=== PATIENT | female | born 1955 | race Caucasian/White ===

== ENCOUNTER 2020-05-03 12:07 | Emergency (ER) | payer MEDICARE, SELFPAY ==
[2020-05-03 12:35] VITALS: BP 90/53; BP 95/50; PULSE 84; RESP 14; TEMP 36.2; O2SAT 96; BMI 34.2
--- NOTE | 2020-05-03 12:58 | HMH.EDUTC ---
[facility] [place] Disposition Clinical Impression: Exposure to COVID-19 virus Sinusitis Qualifiers: Sinusitis location: unspecified location Chronicity: acute Recurrence: non-recurrent Qualified Code(s): J01.90 - Acute sinusitis, unspecified Disposition: Home, Self-Care Condition on Discharge: Good Instructions: Sinusitis, DI for Sinusitis, Preventing the Spread of Coronavirus Discharge Instructions Additional Instructions: Drink plenty of fluids. Take tylenol or ibuprofen for pain or fever. Take the medications as directed. Follow up with your regular doctor. GO TO THE ER FOR ANY WORSENING SYMPTOMS Prescriptions: predniSONE [Prednisone 20mg Tab] 20 mg PO BID 4 Days #8 tab Transmission Status: Received by [facility] Benzonatate [Tessalon Perle 100mg Cap] 100 mg PO TIDP PRN #30 cap PRN Reason: Cough Transmission Status: Received by [facility] Azithromycin [Z-Bart 250mg Tab*] 250 mg PO UD DOSE PK #6 tab Transmission Status: Received by [facility] Referrals: Balbina Leon APRN [Primary Care Provider] - Time of Disposition: 13:00 Medical Decision Making - Medical Records Medical records reviewed: No: I reviewed the patient's medical records. - Ron Inquiry Pt receiving controlled substance: No Vital Signs: 05/03/20 12:35 05/03/20 13:19 Temperature 97.1 F L 97.6 F Temperature Source Tympanic Tympanic Pulse Rate 82 Pulse Rate [Right] 84 Respiratory Rate 14 16 Blood Pressure 105/61 L Blood Pressure [Left Arm] 90/53 L Blood Pressure [Right Arm] 95/50 L Blood Pressure Mean [Left Arm] 65 Blood Pressure Mean [Right Arm] 65 Blood Pressure Source [Left Arm] Automatic Cuff Blood Pressure Source [Right Arm] Automatic Cuff Blood Pressure Position Sitting Blood Pressure Position [Left Arm] Sitting Blood Pressure Position [Right Arm] Sitting 02 Sat by Pulse Oximetry 96 Oxygen Delivery Method Room Air Room Air [facility] [place] HPI - General Stated complaint: sore throat, bilateral earache,sinus Time Seen by Provider: 05/03/20 12:58 Mode of Arrival: Ambulatory Source of Information: Patient Limitations: No Limitations Description of Symptoms (Recalled from Triage Doc. by RN): sore throat, ear ache, nausea since sunday. HEENT Symptoms (Recalled from RN notes): Yes (sore throat and ear ache) Resp Symptoms (Recalled from RN notes): No Skin Symptoms (Recalled from RN notes): No MS Symptoms (Recalled from RN notes): No Functional Status (Recalled from RN notes): na - History of Present Illness Provider Complaint: She states that for the past 3 days she has been having sinus congestion, sore throat and a cough. She denies any fever or chills. She was exposed to covid last week, but she doesn't believe she has covid. - Related Data Previous Rx's Medication Instructions Recorded Azithromycin [Z-Bart 250mg Tab*] 250 mg PO UD DOSE PK #6 tab 05/03/20 Benzonatate [Tessalon Perle 100mg 100 mg PO TIDP PRN #30 cap 05/03/20 Cap] predniSONE [Prednisone 20mg 20 mg PO BID 4 Days #8 tab 05/03/20 Tab] Allergies Allergy/AdvReac Type Severity Reaction Status Date / Time No Known Allergies Allergy Verified 05/03/20 12:40 - Worker's Comp Is this a Worker's Comp case?: No [facility] History - Hepatitis A Screen Drug use history?: No High risk sexual behaviors?: No History of sexually transmitted infection?: No Currently employed?: No Childcare worker?: No Do you have indoor plumbing?: Yes Do you have electricity?: Yes Attestation statement:: This patient has been screened for Hepatitis A risk factors. I have reviewed the patient's past medical history: Yes - Social History Smoking Status: Never smoker Alcohol Intake: never Occupational Status: other Household Members: spouse ROS Obtained: Yes All systems reviewed & no additional complaints - Constitutional Constitutional: Reports system reviewed and no additional complaints, except as docu - Eyes
[2020-05-03 13:19] VITALS: BP 105/61; PULSE 82; RESP 16; TEMP 36.4
--- NOTE | 2020-05-03 16:41 | PC.NURSE ---
spoke with pt relaying positive covid results.
== END 2020-05-03 13:20 | disposition home or self-care (01) ==
PROVIDERS: Emergency Provider Nurse Practitioner Family; PCP Nurse Practitioner Family
DX: U07.1 COVID-19 (principal); J01.90 Acute sinusitis, unspecified
CPT/HCPCS: G0463; 99202; U0003

== ENCOUNTER 2021-08-23 09:33 | Emergency (ER) | payer MEDICARE, SELFPAY ==
--- NOTE | 2021-08-23 09:39 | XR_ITS ---
FINAL REPORT CLINICAL HISTORY: medial knee pain since sunday, no prior sx FINDINGS: LEFT KNEE: Three views of the left knee were obtained. There is no acute fracture or dislocation. There are agdx-ct-wlzrrkru degenerative changes. There is a small joint effusion. IMPRESSION: No acute bony abnormality. Small joint effusion. Reviewed, Interpreted and Dictated by Jose Rafael Nelson III, MD Transcribed by Tomasz Lopes Authenticated by Jose Rafael Nelson III, MD on 08/23/2021 10:37:48 AM [facility]
[2021-08-23 09:53] VITALS: BP 141/63; PULSE 61; RESP 17; TEMP 36.7; O2SAT 98; BMI 34.9
--- NOTE | 2021-08-23 10:02 | HMH.EDUTC ---
[facility] [place] Clinical Impression: Left knee pain Qualifiers: Chronicity: acute Qualified Code(s): M25.562 - Pain in left knee Left knee sprain Qualifiers: Encounter type: initial encounter Involved ligament of knee: unspecified ligament Qualified Code(s): S83.92XA - Sprain of unspecified site of left knee, initial encounter Disposition: Home, Self-Care Condition on Discharge: Good Instructions: DI for Knee Sprain, DI for Knee Pain, How to Use a Knee Immobilizer Additional Instructions: Rest the extremity, Elevate the extremity as tolerated while you are resting. Follow up with Dr. Garcia (orthopedics). Sometimes there can be fractures that don't show up well on the first set of x-rays. So, you should follow up if you continue to have symptoms. I put in a referral but you need to call his office and schedule an appointment. Follow up with your regular doctor. GO TO THE ER FOR ANY WORSENING SYMPTOMS Referrals: Balbina Leon APRN [Primary Care Provider] - Manuel Garcia MD [Staff Physician] - Time of Disposition: 10:21 Medical Decision Making - Medical Records Medical records reviewed: No: I reviewed the patient's medical records. - Orn Inquiry Pt receiving controlled substance: No Vital Signs: 08/23/21 09:53 08/23/21 10:22 Temperature 98.0 F 98.0 F Temperature Source Oral Pulse Rate 61 Pulse Rate [Left Radial] 61 Respiratory Rate 17 17 Blood Pressure 141/63 H Blood Pressure [Right Arm] 141/63 H Blood Pressure Mean [Right Arm] 89 02 Sat by Pulse Oximetry 98 Orders (Tests/Meds): ED MEDICATIONS Discontinued Medications Generic Name Dose Route Start Last Admin Trade Name Freq PRN Reason Stop Dose Admin Methylprednisolone Sodium Succinate 125 mg 08/23/21 10:08 08/23/21 10:20 Methylprednisolone Sod Succ 125mg Vial IM 08/23/21 10:09 125 mg ONCE ONE Administration ORDERS Category Date Time Status Knee XR left 3 views [XR knee LT 3V] Stat Exams 08/23/21 09:39 Taken - Radiology Data #1 Image(s): Knee Image Reviewed: Yes I reviewed the patient's radiology image, Yes I have reviewed radiologist's interpretation Preliminary Findings: No Fracture Seen [facility] [place] HPI - General Stated complaint: lt knee pain Time Seen by Provider: 08/23/21 10:02 Source of Information: Patient Description of Symptoms (Recalled from Triage Doc. by RN): patient here with complaints of left knee pain. patient states that she has been spring cleaning around her house, and her knee began hurting. this happened on sunday. HEENT Symptoms (Recalled from RN notes): No Resp Symptoms (Recalled from RN notes): No Skin Symptoms (Recalled from RN notes): No MS Symptoms (Recalled from RN notes): Yes Functional Status (Recalled from RN notes): wnl - History of Present Illness Provider Complaint: She c/o left knee pain and stiffness for the past 2 days. - Related Data Previous Rx's Medication Instructions Recorded Azithromycin [Z-Bart 250mg Tab*] 250 mg PO UD DOSE PK #6 tab 05/03/20 Benzonatate [Tessalon Perle 100mg 100 mg PO TIDP PRN #30 cap 05/03/20 Cap] predniSONE [Prednisone 20mg 20 mg PO BID 4 Days #8 tab 05/03/20 Tab] Allergies Allergy/AdvReac Type Severity Reaction Status Date / Time No Known Allergies Allergy Verified 05/03/20 12:40 - Worker's Comp Is this a Worker's Comp case?: No [facility] History - Hepatitis A Screen Attestation statement:: This patient has been screened for Hepatitis A risk factors. I have reviewed the patient's past medical history: Yes - Social History Smoking Status: Never smoker Alcohol Intake: never Occupational Status: other Household Members: spouse ROS Obtained: Yes All systems reviewed & no additional complaints - Constitutional Constitutional: Denies chills, Denies fever(s) - Eyes Eyes: Denies eye discharge - Musculoskeletal Musculoskeletal: Reports as per HPI - Integumentary/Breasts Skin/B
[2021-08-23 10:22] VITALS: BP 141/63; PULSE 61; RESP 17; TEMP 36.7
== END 2021-08-23 10:27 | disposition home or self-care (01) ==
PROVIDERS: Emergency Provider Nurse Practitioner Family; PCP Nurse Practitioner Family
DX: S83.92XA Sprain of unspecified site of left knee, initial encounter
CPT/HCPCS: 73562; 99212; G0463

== ENCOUNTER 2021-09-02 13:46 | Outpatient (RCR) | payer MEDICARE, SELFPAY | END 2021-09-02 14:30 | disposition home or self-care (01) | LOC: PT 13:46 | PROVIDERS: Visit Provider Orthopaedic Surgery | DX: M25.562 Pain in left knee (principal) | CPT/HCPCS: 97760 ==

== ENCOUNTER 2021-11-15 11:00 | Outpatient (RCR) | payer MEDICARE, SELFPAY ==
--- NOTE | 2021-09-08 11:22 | HMH.PTOPEV ---
PT Outpatient Evaluation Rehab PT Outpatient Evaluation Start: 09/08/21 11:15 Freq: Status: Active Protocol: Document 09/08/21 11:15 CHAGO (Rec: 09/08/21 11:22 CHAGO [id number]) Electronically Signed By Álvaro Reis, PT 09/08/21 11:15 Outpatient Therapy Subjective History Subjective History Pt reports left knee pain since 'stepping off ladder and missing a rung'~1 month ago. Pt reports medial aspect left knee pain since incident, however, reports improvement of s/s over the last ~3-4 days . Pt reports h/o left knee OA. Chief Complaint Pain,Stiff,Swelling,Weakness Symptom Type Ache,Sharp,Dull Symptoms Relieved By Rest/Positioning,Brace/Support Symptoms Aggravated By Physical Activity,Walking Prior Functional Limitations None Current Functional Limitations Walking,Stairs Symptom Description Intermittent Level of pain today (0-10) 0 Pain scale - at its best (0-10) 0 Pain scale - at its worst (0-10) 3 Hip/Knee Eval Gait Observation General Gait Pattern Observation Antalgic Gait Palpation Tenderness left Knee Palpation Finding Tenderness Knee Palpation Overall Comment 2-3/4 medial jt line/MCL MMT Hip Flexion Strength Grade 4 Good Hip Abduction Strength Grade 4- Good- Hip Adduction Strength Grade 4- Good- Hip Extension Strength Grade 4 Good Hip External Rotation Strength Grade 4 Good Hip Internal Rotation Strength Grade 4 Good Knee Extension Strength Grade 5 Normal Knee Flexion Strength Grade 5 Normal ROM Knee Flexion Active Range of Motion ( 0-135 degrees) Effusion joint effusion knee exam standard left Mid - Patellar Circumerential Measure ( 37 cm) Special Tests Knee Valgus Stress Test Negative Left Knee Varus Stress Test Negative Left Knee Peace Test Negative Left Outpatient Therapy Assessment Impairments Problems/Impairmments Palpation Tenderness,Impaired Strength,Impaired Gait Pattern ,Impaired Walking,Impaired Stair Climbing,Subjective C/O Pain,Impaired Self Care/Self Management Prognosis Rehab Potential Good Clinical Impression Consistent with Diagnosis Yes Short Term Goals Number of Weeks 4 Decreased Palpation Tenderness Yes: 0-1/4 left knee medial aspect Increase Strength Yes: 4-4+/5 LEFT HIP/KNEE MM Imp
--- NOTE | 2021-10-06 11:40 | HMH.RHREAS ---
Rehab Reassessment Rehab OP Re-assessment Start: 10/06/21 11:05 Freq: Status: Active Protocol: Document 10/06/21 11:06 CHAGO (Rec: 10/06/21 11:39 CHAGO [id number]) Electronically Signed By Álvaro Reis, PT 10/06/21 11:06 Rehab Re-assessment Subjective Subjective Pt reports improved strength and pain in left knee since I eval, reports 1/10 left knee pain on VAS this am, feels 35- 40% better overall Objective Objective Notes AROM: LEFT KNEE FLX 0-139 MMT: L KNEE EXT 5/5, L KNEE FLX 4+/5 L HIP FLX 4-4+/5, L HIP ABD 4/5, L HIP ADD 4/5, L HIP EXT 4-4+/5 TTP: LEFT KNEE MEDIAL JT LINE 1-2/4 GAIT: WFL ON LEVEL TERRAIN, NO A.D. Assessment Progress Assessment Progressing as Expected Assessment Notes IMPROVED STRENGTH, ROM, TTP, AND GAIT Patient goals met STG'S/LTG'S 08/31 Goals Not Met STG/LTG'S 05/03 (ADVANCED HEP, TTP) Plan Plan Pt to continue w/skilled P.T. to make further improvements in left knee AROM, strength, TTP, and gait to allow for optimal function Frequency of Therapy 1-2x/wk Duration of therapy 3-4wks Time and Billing Re-Eval Time 12 Re-Eval Billing Units 1 PHYSICIAN CERTIFICATION: I certify the specified therapy services for Rita Ogden are required, authorized, and reviewed every 30 days.
--- NOTE | 2021-11-08 11:42 | HMH.RHREAS ---
Rehab Reassessment Rehab OP Re-assessment Start: 10/06/21 11:05 Freq: Status: Active Protocol: Document 11/08/21 11:06 CHAGO (Rec: 11/08/21 11:42 CHAGO [id number]) Electronically Signed By Álvaro Reis, PT 11/08/21 11:06 Rehab Re-assessment Subjective Subjective Pt reports improved strength in left LE since last reassessment, however 'it's still hurting in the front.' Objective Objective Notes AROM: LEFT KNEE FLX 0-140 MMT: L KNEE EXT 5/5, L KNEE FLX 4+/5 L HIP FLX 4-4+/5, L HIP ABD 4+/5, L HIP ADD 4+/5, L HIP EXT 4+/5 TTP: LEFT KNEE MEDIAL JT LINE 1-24 GAIT: WFL ON LEVEL TERRAIN, NO A.D. Assessment Progress Assessment Progressing as Expected Assessment Notes improved left hip strength Patient goals met STG'S/LTG'S 09/30 Goals Not Met STG'S/LTG'S 04/02 (TTP) Plan Plan Pt to continue w/skilled P.T. to make further improvements in left knee AROM, strength, TTP, and gait to allow for optimal function Frequency of Therapy 1-2X/WK Duration of therapy 1-2WKS Time and Billing Re-Eval Time 12 Re-Eval Billing Units 1 PHYSICIAN CERTIFICATION: I certify the specified therapy services for Rita Ogden are required, authorized, and reviewed every 30 days.
== END 2021-11-15 11:05 | disposition home or self-care (01) ==
LOC: PT 11:00
PROVIDERS: PCP Orthopaedic Surgery; Visit Provider Orthopaedic Surgery
DX: M25.562 Pain in left knee (principal)
CPT/HCPCS: 97010; 97014; 97033; 97035; 97110; 97163; 97164; G0283

== ENCOUNTER → 2022-05-15 23:24 | Outpatient (CLI) | payer MEDICARE, SELFPAY ==
[2022-05-15 17:22] LABS: Barbiturates Screen,Urine Negative ng/ml (<200); Benzodiazepines Screen,Urine Negative ng/ml (<200)
[2022-05-15 17:23] LABS: Amphetamine/Metha Screen,Urine Negative ng/ml (<1000)
[2022-05-15 17:24] LABS: Cannabinoid Screen,Urine Negative ng/ml (<50); Cocaine Screen,Urine Negative ng/ml (<300)
[2022-05-15 17:25] LABS: Methadone Screen,Urine Negative ng/ml (<300); Opiate Screen,Urine Negative ng/ml (<300)
[2022-05-15 17:26] LABS: Phencyclidine Screen,Urine Negative ng/ml (<25)
== END ==
PROVIDERS: PCP Family Medicine; Visit Provider Family Medicine
DX: Z79.899 Other long term (current) drug therapy (principal)
CPT/HCPCS: 80305

== ENCOUNTER 2024-03-12 10:40 | Outpatient (CLI) | payer MEDICARE, SELFPAY ==
[2024-03-12 17:09] LABS: Hematocrit 40.9 % (37.0-47.0); Red Blood Count 4.28 M/mm3 (4.20-5.40); White Blood Count 7.4 K/mm3 (4.8-10.8)
[2024-03-12 17:10] LABS: Basophils # 0.1 K/mm3 (0-0.2); Basophils % 0.8 % (0.1-2.0); Eosinophils # 0.2 K/mm3 (0.0-0.4); Eosinophils % 2.2 % (0.1-12.0); Lymphocytes # 1.4 K/mm3 (0.7-4.5); Lymphocytes % 18.4 % (10-50); Mean Corpuscular HGB Conc 31.8 g/dL (31.8-35.4); Mean Corpuscular Hemoglobin 30.4 pg (27.0-31.2); Mean Corpuscular Volume 95.6 fl (81-99); Mean Platelet Volume 11.9 fl (7.4-10.4); Monocytes # 0.8 K/mm3 (0.1-1.0); Monocytes % 10.9 % (1.7-9.3); Neutrophils % 67.4 % (37.0-80.0); Platelet Count 335 K/mm3 (142-424); Red Cell Distribution Width 13.2 % (11.5-17.5)
[2024-03-12 17:36] LABS: Alanine Aminotransferase 23 U/L (12-78); Albumin Level 4.1 g/dl (3.5-5.0); Albumin/Globulin Ratio 2.1 (1.1-1.8); Alkaline Phosphatase 90 U/L (38-126); Anion Gap 14.5 mEq/L (5-15); Aspartate Amino Transferase 29 U/L (14-36); Bilirubin,Total 0.7 mg/dl (0.2-1.3); Blood Urea Nitrogen 19 mg/dl (7-17); Calcium 9.1 mg/dl (8.4-10.2); Carbon Dioxide 28 mmol/L (22.0-30.0); Chloride 103 mmol/L (98-107); Chol/HDL Ratio 2.3 (1-3.5); Cholesterol 122 mg/dl (140-200); Estimated Glomerular Filt Rate 49 ml/min (>60); GFR (African American) 59 ML/MIN (>60); Glucose 109 mg/dl (74-100); HDL Cholesterol 53 mg/dl (40-60); Potassium 4.5 mmoL/L (3.5-5.1); Sodium 141 mmol/L (136-145); Total Protein,Serum 6.1 g/dl (6.3-8.2); Triglycerides 107 mg/dl (30-150); VLDL Cholesterol 21 mg/dL (0-40)
[2024-03-12 17:47] LABS: Direct LDL Cholesterol 55.62 mg/dL (100-129)
[2024-03-12 18:06] LABS: Thyroid Stimulating Hormone 2.29 uIU/mL (0.465-4.68)
[2024-03-12 19:30] LABS: Microalbumin/Creatinine Ratio 35.8
[2024-03-12 20:10] LABS: Creatinine,Urine Random 231 mg/dL (Not Estab.)
[2024-03-12 22:12] LABS: HIV Combo NEGATIVE (Negative)
[2024-03-15 05:26] LABS: HCV Ab Non Reactive (Non Reactive)
== END 2024-03-12 23:59 | disposition home or self-care (01) ==
LOC: LAB.DROPOF 03-13 12:12
PROVIDERS: PCP Family Medicine; Visit Provider Family Medicine
DX: I10 Essential (primary) hypertension (principal); E11.9 Type 2 diabetes mellitus without complications; Z11.59 Encounter for screening for other viral diseases
CPT/HCPCS: 80053; 80061; 82043; 82570; 83036; 84443; 85025; 86803; 87389

== ENCOUNTER 2024-05-06 07:38 | Day surgery (SDC) | payer MEDICARE, SELFPAY ==
[2024-05-05 12:07] VITALS: BMI 33.8
[2024-05-06] VITALS (7 sets, daily range): BP systolic 115–126; BP diastolic 47–83; PULSE 58–71; RESP 16–18; TEMP 36.4; O2SAT 95–99
[2024-05-06] MEDS: TETRACAINE 0.5% OPTH SOL 15ML OP ×3 (08:00→08:10)
[2024-05-06] MEDS: CYCLOPENTOLATE 2% OPHTH SOLN 2ML BOTTLE OP ×3 (08:00→08:10)
[2024-05-06] MEDS: PHENYLEPHRINE 2.5% OPHTH SOLN 2ML OP ×3 (08:00→08:10)
[2024-05-06] MEDS: MIDAZOLAM 2MG/2ML VIAL 1 MG IV (09:10)
[2024-05-06] MEDS: SODIUM CHLORIDE 0.9% 10ML FLUSH SYRINGE 10 ML IV (09:10)
[2024-05-06] MEDS: TOBRAMYCIN/DEX OPTH SUSP 2.5ML OP (09:18)
[2024-05-06] MEDS: TIMOLOL 0.5% OPTH SOLN 5ML OP (09:18)
[2024-05-06] MEDS: LIDOCAINE 1% PF 2ML AMPULE 2 ML IJ (09:19)
--- NOTE | 2024-05-06 10:41 | HMH.PROCNOTE ---
[facility] Procedure Note Date: 05/06/24 Time: 10:41 Procedure Note:: Preoperative Diagnosis: Cataract combined NS Cortical Complex [Right] Eye Postop diagnosis: same Operation: Microscopic phacoemulsification with intraocular lens implant [Right] Eye Specimen: None Blood Loss: None The patient was examined in the office with a complaint of poor vision in the [right] eye. The patient reports that this interferes with ADLs such as reading, watching TV and/or driving or the vision is like looking through a foggy haze and is very troubling. The patient was examined and found to have a visually significant cataract with best corrected vision of [20/400] by refraction and/or glare testing. Treatment options, risks and benefits were explained and the patient elected to have cataract surgery in an attempt to improve their vision. The patient had the eye anesthetized with topical tetracaine, the eye ways prepped and draped in the usual fashion for cataract surgery. A paracentesis and a temporal keratotomy were made. 0.2cc of 1% lidocaine PF was placed into the anterior chamber. And aqueous/viscoelastic exchange was done and a 360 degree capsulorexis was performed. Through hydrodissection and delineation with BSS on a cannula was done. The lens nucleus was phecoemulsified with CDE of [9.13]. Residual cortical material was removed using automated I&A The capsular bag was deepened with viscoelastica and a PCIOL was placed in the capsular bag with good centration and stability. Residual viscoelastic was removed using automated I&A. The keratotomy incision was hydrated with BSS on a cannula. The wound were checked and found to be water tight. IOP was checked digitally and adjusted as needed so as not to be too high. 1 drop of timolol 0.5%, ofloxacin, prednisolone acetate and ketorolac was instilled and eye shield taped over the eye. The patient was taken to recovery in good condition and will be seen postoperatively.
== END 2024-05-06 09:43 | disposition home or self-care (01) ==
PROVIDERS: PCP Family Medicine; Visit Provider Ophthalmology
PROC: (CPT 66984; principal; 2024-05-06 09:00)
DX: H25.011 Cortical age-related cataract, right eye (principal)
CPT/HCPCS: 66984; J2250; V2632

== ENCOUNTER 2024-06-03 07:27 | Day surgery (SDC) | payer MEDICARE, SELFPAY ==
[2024-05-30 13:44] VITALS: BMI 34.7
[2024-06-03] MEDS: CYCLOPENTOLATE 2% OPHTH SOLN 2ML BOTTLE OP ×3 (08:22→08:23)
[2024-06-03] MEDS: TETRACAINE 0.5% OPTH SOL 15ML OP ×3 (08:22→08:23)
[2024-06-03] MEDS: PHENYLEPHRINE 2.5% OPHTH SOLN 2ML OP ×3 (08:22→08:23)
[2024-06-03 08:27] VITALS: BP 132/53; PULSE 62; RESP 18; TEMP 36.4; O2SAT 93
[2024-06-03 08:53] LABS: POC Glucose,Bedside 107 (70-110)
[2024-06-03 09:03] VITALS: BP 133/67; PULSE 56; RESP 16; TEMP 36.6; O2SAT 94
[2024-06-03] MEDS: MIDAZOLAM 2MG/2ML VIAL 1 MG IV (09:03)
[2024-06-03] MEDS: SODIUM CHLORIDE 0.9% 10ML FLUSH SYRINGE 10 ML IV (09:03)
[2024-06-03 09:08] VITALS: BP 121/63; PULSE 56; RESP 16; TEMP 36.6; O2SAT 92
[2024-06-03] MEDS: LIDOCAINE 1% PF 2ML AMPULE 2 ML IJ (09:10)
[2024-06-03] MEDS: TIMOLOL 0.5% OPTH SOLN 5ML OP (09:10)
[2024-06-03] MEDS: TOBRAMYCIN/DEX OPTH SUSP 2.5ML OP (09:10)
[2024-06-03 09:13] VITALS: BP 128/71; PULSE 55; RESP 16; TEMP 36.6; O2SAT 93
[2024-06-03 09:18] VITALS: BP 125/67; PULSE 54; RESP 16; TEMP 36.6; O2SAT 93
[2024-06-03 09:24] VITALS: BP 120/75; PULSE 61; RESP 18; TEMP 36.3; O2SAT 94
--- NOTE | 2024-06-03 11:43 | HMH.PROCNOTE ---
[facility] Procedure Note Date: 06/03/24 Time: 11:43 Procedure Note:: Preoperative Diagnosis: Cataract combined NS Cortical Complex [Left] Eye Postop diagnosis: same Operation: Microscopic phacoemulsification with intraocular lens implant [Left] Eye Specimen: None Blood Loss: None The patient was examined in the office with a complaint of poor vision in the [left] eye. The patient reports that this interferes with ADLs such as reading, watching TV and/or driving or the vision is like looking through a foggy haze and is very troubling. The patient was examined and found to have a visually significant cataract with best corrected vision of [20/400] by refraction and/or glare testing. Treatment options, risks and benefits were explained and the patient elected to have cataract surgery in an attempt to improve their vision. The patient had the eye anesthetized with topical tetracaine, the eye ways prepped and draped in the usual fashion for cataract surgery. A paracentesis and a temporal keratotomy were made. 0.2cc of 1% lidocaine PF was placed into the anterior chamber. And aqueous/viscoelastic exchange was done and a 360 degree capsulorexis was performed. Through hydrodissection and delineation with BSS on a cannula was done. The lens nucleus was phecoemulsified with CDE of [9.43]. Residual cortical material was removed using automated I&A The capsular bag was deepened with viscoelastica and a PCIOL was placed in the capsular bag with good centration and stability. Residual viscoelastic was removed using automated I&A. The keratotomy incision was hydrated with BSS on a cannula. The wound were checked and found to be water tight. IOP was checked digitally and adjusted as needed so as not to be too high. 1 drop of timolol 0.5%, ofloxacin, prednisolone acetate and ketorolac was instilled and eye shield taped over the eye. The patient was taken to recovery in good condition and will be seen postoperatively.
--- NOTE | 2024-06-03 11:46 | HMH.PROCNOTE ---
[facility] Procedure Note Date: 06/03/24 Time: 11:46 Procedure Note:: Preoperative Diagnosis: Cataract combined NS Cortical Complex [Left] Eye Postop diagnosis: same Operation: Microscopic phacoemulsification with intraocular lens implant [Left] Eye Specimen: None Blood Loss: None The patient was examined in the office with a complaint of poor vision in the [left] eye. The patient reports that this interferes with ADLs such as reading, watching TV and/or driving or the vision is like looking through a foggy haze and is very troubling. The patient was examined and found to have a visually significant cataract with best corrected vision of [20/400] by refraction and/or glare testing. Treatment options, risks and benefits were explained and the patient elected to have cataract surgery in an attempt to improve their vision. The patient had the eye anesthetized with topical tetracaine, the eye ways prepped and draped in the usual fashion for cataract surgery. A paracentesis and a temporal keratotomy were made. 0.2cc of 1% lidocaine PF was placed into the anterior chamber. And aqueous/viscoelastic exchange was done and a 360 degree capsulorexis was performed. Through hydrodissection and delineation with BSS on a cannula was done. The lens nucleus was phecoemulsified with CDE of [9.43 ]. Residual cortical material was removed using automated I&A The capsular bag was deepened with viscoelastica and a PCIOL was placed in the capsular bag with good centration and stability. Residual viscoelastic was removed using automated I&A. The keratotomy incision was hydrated with BSS on a cannula. The wound were checked and found to be water tight. IOP was checked digitally and adjusted as needed so as not to be too high. 1 drop of timolol 0.5%, ofloxacin, prednisolone acetate and ketorolac was instilled and eye shield taped over the eye. The patient was taken to recovery in good condition and will be seen postoperatively.
== END 2024-06-03 09:31 | disposition home or self-care (01) ==
PROVIDERS: PCP Family Medicine; Visit Provider Ophthalmology
PROC: (CPT 66984; principal; 2024-06-03 09:00)
DX: H25.012 Cortical age-related cataract, left eye (principal); E11.9 Type 2 diabetes mellitus without complications; Z79.85 Long-term (current) use of injectable non-insulin antidiabetic drugs
CPT/HCPCS: 66984; 82962; J2250; V2632

== ENCOUNTER 2024-07-24 16:37 | Outpatient (CLI) | payer MEDICARE, SELFPAY ==
--- OUTSIDE RECORDS SUMMARY | 2024-07-24 16:39 | XMS_ITS | Continuity of Care Document ---
Author Organization [facility] Phone Care Team Providers Care Brake Tester Name Role Phone ULISSES JOSÉ M Primary Care TANNER MARINO Primary Attending TANNER MARINO Unavailable TANNER MARINO Admitting ALLERGIES AND ADVERSE REACTIONS ALLERGIES AND ADVERSE REACTIONS Code System Allergy Substance Adverse Reaction Date Reaction (Severity) Comment Status Reported By Updated By XANAFLEX (Free Text Allergy) Adverse reaction to substance u active [id number] on December 07, 2020 11:38:03 AM [place] 2670 RXNorm CODEINE Adverse reaction to substance u active [id number] on December 07, 2020 11:38:03 AM [place] PERCOCET (Free Text Allergy) Adverse reaction to substance u active [id number] on December 07, 2020 11:38:03 AM [place] 7646 RXNorm OMEPRAZOLE Rash (Severe) active Patien t [id number] on December 07, 2020 11:38:02 AM [facility] [place] FAMILY HISTORY RELATION: Father Status: Cause of : Unknown Age at : Unknown SNOMED-CT Diagnosis Age At Onset [id number] Dementia RELATION: Mother Status: LIVING SNOMED-CT Diagnosis Age At Onset Information not available MEDICATIONS HOME MEDICATIONS Status RXNORM NDC Medication Dose Route Frequency Dates Comments Reported By Updated By Drug Treatment Unknown DISCHARGE MEDICATIONS Status RXNORM NDC Medication Dose Route Frequency Dates Comments Physician Updated By No Discharge Medication Info rmation Available INPATIENT MEDICATIONS Status RXNORM NDC Medication Dose Route Frequency Rat e Quantity Dates Comments Physician Updated By No Inpatient Medication Info rmation Available SOCIAL HISTORY SOCIAL HISTORY SNOMED-CT Social History Element Description Effective Dates Offered Cessation Comment UpdatedBy [id number] Historical Tobacco smoking status Former Smoker Not Applicable [id number] on December 03, 2020 7:22:05 PM [facility] [place] SOCIAL HISTORY - Gender Sex: Female SOCIAL HISTORY - Status : status i nformation is not available Intention in Next Year: intention information is not available SOCIAL HISTORY - Sexual Behavior Sexual Orientation Gender Identity SNOMED-CT Description SNO MED -CT Description Activity Level No of Partners Partner Type UpdatedBy Information is not available HEALTH CONCERNS Problems Concern Status Health Concern problem infor mation not available. Smoking Status Status Years Used Consumed packs p er day Health Concern smoking histo ry information not available. Family History Concern Status Health Concern family histor y information not available. ENCOUNTERS ENCOUNTER INFORMATION Reason for Visit N39.0 Admission July 09, 2024 5:27:00 PM [facility] [address] [facility] [id number] Discharge July 09, 2024 5:27:00 PM [facility] DI SCHARGED TO HOME OR SELF CARE ENCOUNTER DIAGNOSES Notes information is not brooke ilable. Code System Diagnosis Onset Date Diagnosis information is not available. ABSTRACT DIAGNOSES Code System Diagnosis Updated By N39.0 ICD10 URINARY TRACT IN FECTION, SITE NOT SPECIFIED [id number] on July 11, 2024 8:52:20 AM [facility] N39.0 ICD10 URINARY TRACT IN FECTION, SITE NOT SPECIFIED [id number] on July 11, 2024 8:52:21 AM [facility] CARE TEAM Care Brake Tester Role JOSÉ GTZ Primary Care TANNER MARINO Primary Attending TANNER MARINO Referring TANNER MARINO Admitting CARE TEAM CARE circuit clerk Role on Team Status Start Date End Date Update d By ULISSES KUMAR MD PCP normal July 09, 2024 4:00:00 AM [facility] July 09, 2024 5:27:00 PM [facility] [id number] on July 09, 2024 5:30:14 PM [facility] JAMILA MANN Referring normal July 09, 2024 4:00:00 AM [facility] July 09, 2024 5:27:00 PM [facility] [id number] on July 09, 2024 5:30:14 PM [facility] JAMILA MANN Attending normal July 09, 2024 4:00:00 AM [facility] July 09, 2024 5:27:00 PM [facility] [id number] on July 09, 2024 5:30:14 PM [facility] JAMILA MANN Admitting normal July 09, 2024 4:00:00 AM [facility] [place] July 09, 2024 5:27:00 PM [facility] [id number] on July 09, 2024 5:30:14 PM [facility]
--- OUTSIDE RECORDS SUMMARY | 2024-07-24 16:39 | XMS_ITS | Continuity of Care Document ---
Author Organization [facility] Phone Care Team Providers Care Right Of Way Supervisor Name Role Phone TANNER MARINO Primary Attending JOSÉ GTZ Primary Care TANNER MARINO Unavailable TANNER MARINO Admitting ALLERGIES AND ADVERSE REACTIONS ALLERGIES AND ADVERSE REACTIONS Code System Allergy Substance Adverse Reaction Date Reaction (Severity) Comment Status Reported By Updated By XANAFLEX (Free Text Allergy) Adverse reaction to substance u active [id number] on December 07, 2020 11:38:03 AM UTC 2670 RXNorm CODEINE Adverse reaction to substance u active [id number] on December 07, 2020 11:38:03 AM UTC PERCOCET (Free Text Allergy) Adverse reaction to substance u active [id number] on December 07, 2020 11:38:03 AM UTC 7646 RXNorm OMEPRAZOLE Rash (Severe) active Patien t [id number] on December 07, 2020 11:38:02 AM UTC FAMILY HISTORY RELATION: Father Status: Cause of : Unknown Age at : Unknown SNOMED-CT Diagnosis Age At Onset [id number] Dementia RELATION: Mother Status: LIVING SNOMED-CT Diagnosis Age At Onset Information not available RESULTS Patient: CLAUDIO CORTES Date of : 1955 LABORATORY RESULTS ORDER 200: COMP METABOLIC PA SINDHU (LOINC: 30717-2) ORDER DATE: May 21, 2024 6:50:00 PM UTC Specimen Source: Serum/Plasm a Specimen Type: Acellular blo od (serum or plasma) specimen PERFORMING LAB: [address] [id number] Result Comment: Final Result Date: May 21, 2024 7:48:00 PM UTC (TECH: LT) LOINC TEST FLAG RESULT REFERENCE RANGE UPDA ZAK BY 2951-2 Sodium [Moles/volume ] in Serum or Plasma N 141 mmol/L 136 mmol/L - 145 mmol/L May 21, 2024 7:48:00 PM UTC (TECH: LT) 2823-3 Potassium [Moles/volume] in Serum or Plasma N 3.5 mmol/L 3.5 mmol/L - 5.1 mmol/L May 21, 2024 7:48:00 PM UTC (TECH: LT) 5-0 Chloride [Moles/volu me] in Serum or Plasma N 104 mmol/L 98 mmol/L - 107 mmol/L May 21, 2024 7:48:00 PM UTC (TECH: LT) 2027-9 Carbon dioxide, tota l [Moles/volume] in Serum or Plasma N 29 mmol/L 21 mmol/L - 32 mmol/L May 21, 2024 7:48:00 PM UTC (TECH: LT) 15728-5 Anion gap 3 in Serum or Plasma N 8.0 May 21, 2024 7:48:00 PM UTC (TECH: LT) 2345-7 Glucose [Mass/volume ] in Serum or Plasma N 108 mg/dL 70 mg/dL - 110 mg/dL May 21, 2024 7:48:00 PM UTC (TECH: LT) 3094-0 Urea nitrogen [Mass/volume] in Serum or Plasma N 15 mg/dL 7 mg/dL - 18 mg/dL May 21, 2024 7:48:00 PM UTC (TECH: LT) 2160-0 Creatinine [Mass/volume] in Serum or Plasma H 1.7 mg/dL 0.6 mg/dL - 1.0 mg/dL May 21, 2024 7:48:00 PM UTC (TECH: LT) 3097-3 Urea nitrogen/Creatinine [Mass Ratio] in Serum or Plasma L 8.8 9 - May 21, 2024 7:48:00 PM UTC (TECH: LT) 78137-3 Glomerular filtratio n rate/1.73 sq M.predicted by Creatinine-based formula (MDRD) L 32 mL/min >60 May 21, 2024 7:48:00 PM UTC (TECH: LT) 2885-2 Protein [Mass/volume ] in Serum or Plasma N 6.6 g/dL 6.4 g/dL - 8.2 g/dL May 21, 2024 7:48:00 PM UTC (TECH: LT) 1751-7 Albumin [Mass/volume ] in Serum or Plasma N 3.6 g/dL 3.4 g/dL - 5.0 g/dL May 21, 2024 7:48:00 PM UTC (TECH: LT) 04821-5 Calcium [Mass/volume ] in Serum or Plasma N 9.4 mg/dL 8.5 mg/dL - 10.1 mg/dL May 21, 2024 7:48:00 PM UTC (TECH: LT) 46698-7 Calcium [Mass/volume ] corrected for total protein in Serum or Plasma N 9.7 mg/dL 8.5 mg/dL - 10.1 mg/dL May 21, 2024 7:48:00 PM UTC (TECH: LT) 1975-2 Bilirubin.total [Mass/volume] in Serum or Plasma N 0.6 mg/dL 0.4 mg/dL - 1.5 mg/dL May 21, 2024 7:48:00 PM UTC (TECH: LT) 1920-8 Aspartate aminotransferase [Enzymatic activity/volume] in Serum or Plasma L 12 U/L 15 U/L - 37 U/L May 21, 2024 7:48:00 PM UTC (TECH: LT) 1742-6 Alanine aminotransferase [Enzymatic activity/volume] in Serum or Plasma N 22 U/L 12 U/L - 78 U/L May 21, 2024 7:48:00 PM UTC (TECH: LT) 6768-6 Alkaline phosphatase [Enzymatic activity/volume] in Serum or Plasma N 101 U/L 53 U/L - 141 U/L May 21, 2024 7:48:00 PM UTC (TECH: LT) ORDER 300: UA AND MICRO/CULT IF INDICATED (LOINC: 52864-6) ORDER DATE: May 21, 2024 6:50:00 PM UTC Specimen Source: URINE Specimen Type: Urine specime n PERFORMING LAB: [address] [id number] Result Comment: Final Result Date: May 21, 2024 7:20:00 PM UTC (TECH: HC) LOINC TEST FLAG RESULT REFERENCE RANGE UPDA ZAK BY 5778-6 Color of Urine N yellow YELLOW Febru clyde 5 7:20:00 PM UTC (TECH: HC) 5767-9 Appearance of Urine N hazy CLEAR May 21, 2024 7:20:00 PM UTC (TECH: HC) 5792-7 Glucose [Mass/volume] in Urine by Test strip N NORM NORMAL May 21, 2024 7:20:00 PM UTC (TECH: HC) 49000-4 Bilirubin.total [Mass/volume] in Urine by Automated test strip N 3 NEGATIVE May 21, 2024 7:20:00 PM UTC (TECH: HC) 5797-6 Ketones [Mass/volume] in Urine by Test strip N 5 (TRACE) mg/dL NEGATIVE May 21, 2024 7:20:00 PM UTC (TECH: HC) 2965-2 Specific gravity of Urine N 1.025 1.005 - 1.035 May 21, 2024 7:20:00 PM UTC (TECH: HC) 35496-1 Erythrocytes [#/volume] in Urine by Automated test strip N 10 (TRACE) /mcL NEGATIVE May 21, 2024 7:20:00 PM UTC (TECH: HC) 46088-5 pH of Urine by Automated test strip N 5.00 5.0 - 7.5 May 21, 2024 7:20:00 PM UTC (TECH: HC) 13192-6 Protein [Presence] in Urine by Test strip N 100 (2+) mg/dL NEGATIVE May 21, 2024 7:20:00 PM UTC (TECH: HC) 82271-0 Urobilinogen [Mass/volume] in Urine by Automated test strip N 4 mg/dL NORMAL May 21, 2024 7:20:00 PM UTC (TECH: HC) 94886-0 Nitrate [Presence] in Urine POSITIVE NEGATIVE May 21, 2024 7:20:00 PM UTC (TECH: HC) 92444-9 Leukocytes [#/volume] in Urine by Test strip N 100 (1+) /mcL NEGATIVE May 21, 2024 7:20:00 PM UTC (TECH: HC) 23915-5 Other elements in Urine sediment CONTAMINATED May 21, 2024 7:20:00 PM UTC (TECH: HC) 74031-7 Microscopic observation [Identifier] in Urine sediment by Light microscopy N YES May 21, 2024 7:20:00 PM UTC (TECH: HC) 96426-4 Erythrocytes [#/area] in Urine sediment by Microscopy high power field N NONE SEEN 0-3 May 21, 2024 7:20:00 PM UTC (TECH: HC) 5821-4 Leukocytes [#/area] in Urine sediment by Microscopy high power field N 5-10 NONE SEEN May 21, 2024 7:20:00 PM UTC (TECH: HC) 31735-8 Epithelial cells.squamous [#/area] in Urine sediment by Microscopy high power field >30 NONE SEEN May 21, 2024 7:20:00 PM UTC (TECH: HC) 5769-5 Bacteria [#/area] in Urine sediment by Microscopy high power field N 1+ NONE SEEN May 21, 2024 7:20:00 PM UTC (TECH: HC) 34186-8 Hyaline casts [Presence] in Urine sediment by Light microscopy N RARE NONE SEEN May 21, 2024 7:20:00 PM UTC (TECH: HC) 05763-2 Mucus [#/area] in Urine sediment by Microscopy low power field N NONE SEEN NONE SEEN May 21, 2024 7:20:00 PM UTC (TECH: HC) ORDER 400: URIC ACID (LOINC: 3084-1) ORDER DATE: May 21, 2024 6:50:00 PM UTC Specimen Source: Serum/Plasm a Specimen Type: Acellular blo od (serum or plasma) specimen PERFORMING LAB: [address] [id number] Result Comment: Final Result Date: May 21, 2024 7:48:00 PM UTC (TECH: LT) LOINC TEST FLAG RESULT REFERENCE RANGE UPDA ZAK BY 3084-1 Urate [Mass/volume] in Serum or Plasma H 8.1 mg/dL 2.2 mg/dL - 7.7 mg/dL May 21, 2024 7:48:00 PM UTC (TECH: LT) ORDER 500: CBC AUTO NO DIFF HEMOGRAM (LOINC: 02596-3) ORDER DATE: May 21, 2024 8:06:00 PM UTC Specimen Source: Whole Blood Specimen Type: Whole blood s ample PERFORMING LAB: [address] [id number] Result Comment: Final Result Date: May 21, 2024 8:12:00 PM UTC (TECH: LT) LOINC TEST FLAG RESULT REFERENCE RANGE UPDA ZAK BY 6690-2 Leukocytes [#/volume] in Blood by Automated count N 8.7 10^3/uL 4.5 10^3/uL - 11.5 10^3/uL May 21, 2024 8:12:00 PM UTC (TECH: LT) 789-8 Erythrocytes [#/volume] in Blood by Automated count N 4.41 10^6/uL 4.25 10^6/uL - 5.57 10^6/uL May 21, 2024 8:12:00 PM UTC (TECH: LT) 718-7 Hemoglobin [Mass/volume] in Blood N 13.6 g/dL 12.0 g/dL - 15.7 g/dL May 21, 2024 8:12:00 PM UTC (TECH: LT) 03635-8 Hematocrit [Volume Fraction] of Blood N 41.8 % 36.0 % - 47.0 % May 21, 2024 8:12:00 PM UTC (TECH: LT) 787-2 Erythrocyte mean corpuscular volume [Entitic volume] by Automated count N 94.8 fl 80 fl - 95 fl May 21, 2024 8:12:00 PM UTC (TECH: LT) 94324-1 Erythrocyte mean corpuscular hemoglobin [Entitic mass] in Blood from [place]etus by Automated count N 30.8 pg 27.0 pg - 34.0 pg May 21, 2024 8:12:00 PM UTC (TECH: LT) 63669-4 Erythrocyte mean corpuscular hemoglobin concentration [Mass/volume] in Blood from Fetus by Automated count N 32.5 g/dL 32.0 g/dL - 36.0 g/dL May 21, 2024 8:12:00 PM UTC (TECH: LT) 90282-4 Platelets [#/volume] in Blood N 310 10^3/uL 150 10^3/uL - 450 10^3/uL May 21, 2024 8:12:00 PM UTC (TECH: LT) 40740-4 Erythrocyte distribution width [Ratio] N 12.8 % 12.3 % - 15.1 % May 21, 2024 8:12:00 PM UTC (TECH: LT) 23904-2 Platelet mean volume [Entitic volume] in Blood by Automated count H 10.5 fl 7.4 fl - 10.4 fl May 21, 2024 8:12:00 PM UTC (TECH: LT) ORDER 600: HEMOGLOBIN A1C (L OINC: 4548-4) ORDER DATE: May 21, 2024 8:07:00 PM UTC Specimen Source: Whole Blood Specimen Type: Whole blood s ample PERFORMING LAB: [address] [id number] Result Comment: Final Result Date: May 21, 2024 8:25:00 PM UTC (TECH: LT) LOINC TEST FLAG RESULT REFERENCE RANGE UPDA ZAK BY 4548-4 Hemoglobin A1c/Hemoglobin.tot al in Blood N 5.6 % 4.5 % - 6.2 % May 21, 2024 8:25:00 PM UTC (TECH: LT) 38056-1 Glucose mean value [Mass/volume] in Blood Estimated from glycated hemoglobin N 114 mg/dl 82 mg/dl - 131 mg/dl May 21, 2024 8:25:00 PM UTC (TECH: LT) ORDER 700: PROTEIN/CREATININ E URINE (LOINC: 2890-2) ORDER DATE: May 21, 2024 8:13:00 PM UTC Specimen Source: URINE Specimen Type: Urine specime n PERFORMING LAB: [address] [id number] Result Comment: Final Result Date: May 21, 2024 8:25:00 PM UTC (TECH: LT) LOINC TEST FLAG RESULT REFERENCE RANGE UPDA ZAK BY 2888-6 Protein [Mass/volume] in Urine H 78 mg/dL 0.0 mg/dL - 15.0 mg/dL May 21, 2024 8:25:00 PM UTC (TECH: LT) 2161-8 Creatinine [Mass/volume] in Urine H 653.5 mg/dL 30 mg/dL - 125 mg/dL May 21, 2024 8:25:00 PM UTC (TECH: LT) 2890-2 Protein/Creatinine [Mass Ratio] in Urine N 119 0 - 200 May 21, 2024 8:25:00 PM UTC (TECH: LT) ORDER 800: PTH INTACT (LOINC : 2731-8) ORDER DATE: May 21, 2024 8:13:00 PM UTC Specimen Source: Plasma Specimen Type: Plasma specim en PERFORMING LAB: [address] [id number] Result Comment: May 22, 2024 4:10:00 PM UTC Performed at: [facility] Result Comment: May 22, 2024 4:10:00 PM UTC [address] [place], [place] [id number] Result Comment: May 22, 2024 4:10:00 PM UTC Retail Planning Manager: Haider Louie PhD, Phone: [phone] Result Comment: May 22, 2024 4:10:00 PM UTC Final Result Date: May 22, 2024 6:51:00 PM UTC (TECH: LAB) LOINC TEST FLAG RESULT REFERENCE RANGE UPDA ZAK BY 2731-[address] [Mass/volume] in Serum or Plasma N 34 pg/mL 15 pg/mL - 65 pg/mL May 22, 2024 6:51:00 PM UTC (TECH: LAB) ORDER 900: VITAMIN D3 25-OH (LOINC: 1989-3) ORDER DATE: May 21, 2024 8:13:00 PM UTC Specimen Source: Serum Specimen Type: Serum specime n PERFORMING LAB: [address] [id number] Result Comment: May 22, 2024 12:09:00 PM UTC Vitamin D deficiency has been defined by the [place] of Result Comment: May 22, 2024 12:09:00 PM UTC Medicine and an Endocrine Society practice guideline as a Result Comment: May 22, 2024 12:09:00 PM UTC level of serum 25-OH vitamin D less than 20 ng/mL (1,2). Result Comment: May 22, 2024 12:09:00 PM UTC The Endocrine Society went on to further define vitamin D Result Comment: May 22, 2024 12:09:00 PM UTC insufficiency as a level between 21 and 29 ng/mL (2). Result Comment: May 22, 2024 12:09:00 PM UTC 1. IOM ([place] of Medicine). 2010. Dietary reference Result Comment: May 22, 2024 12:09:00 PM UTC intakes for calcium and D. [place]: The Result Comment: May 22, 2024 12:09:00 PM UT [employer]. Result Comment: May 22, 2024 12:09:00 PM UTC 2. Lilliana MF, Ron[place], [place] MARTINEZ, et al. Result Comment: May 22, 2024 12:09:00 PM UTC Evaluation, treatment, and prevention of vitamin D Result Comment: May 22, 2024 12:09:00 PM UTC deficiency: an Endocrine Society clinical practice Result Comment: May 22, 2024 12:09:00 PM UTC guideline. JCEM. 2010; 96(4):7991-30. Result Comment: May 22, 2024 12:09:00 PM UTC Performed at: [facility] Result Comment: May 22, 2024 12:09:00 PM UTC [address] [place] [id number] Result Comment: May 22, 2024 12:09:00 PM UTC Retail Planning Manager: Haider Louie PhD, Phone: [phone] Result Comment: May 22, 2024 12:09:00 PM UTC Final Result Date: May 22, 2024 6:51:00 PM UTC (TECH: LAB) LOINC TEST FLAG RESULT REFERENCE RANGE UPDA ZAK BY 1988- Calcidiol [Mass/volume] in Serum or Plasma N 55.6 ng/mL 30.0 ng/mL - 100.0 ng/mL May 22, 2024 6:51:00 PM UTC (TECH: LAB) LABORATORY NARRATIVE RESULTS Information is not available RADIOLOGY RESULTS Information is not available PATHOLOGY NARRATIVE RESULTS Information is not available MICROBIOLOGY RESULTS No Micro Labs/Results Exist for Patient BLOOD ADMIN RESULTS Information is not available MEDICATIONS HOME MEDICATIONS Status RXNORM [...] Description Effective Dates Offered Cessation Comment UpdatedBy [id number] Historical Tobacco smoking status Former Smoker Not Applicable [id number] on December 03, 2020 7:22:05 PM UTC SOCIAL HISTORY - Gender Sex: Female SOCIAL [...] available. ENCOUNTERS ENCOUNTER INFORMATION Reason for Visit E11.9 Admission May 21, 2024 6:42:[address] [address] Discharge May 21, 2024 6:42:00 PM [facility] DISCHARGED TO HOME OR SELF CARE ENCOUNTER DIAGNOSES Notes information is not brooke ilable. Code System Diagnosis Onset Date Diagnosis information is not available. ABSTRACT DIAGNOSES Code System Diagnosis Updated By I12.9 ICD10 HYPERTENSIVE CHR ONIC KIDNEY DISEASE WITH STAGE 1 THROUGH STAGE 4 CHRONIC KIDNEY DISEASE, OR UNSPECIFIED CHRONIC KIDNEY DISEASE [id number] on May 23, 2024 11:43:35 AM [facility] E11.22 ICD10 TYPE 2 DIABETES MELLITUS WITH DIABETIC CHRONIC KIDNEY DISEASE [id number] on May 23, 2024 11:43:35 AM [facility] N18.31 ICD10 CHRONIC KIDNEY DISEASE, STAG E 3A [id number] on May 23, 2024 11:43:35 AM [facility] I12.9 ICD10 HYPERTENSIVE CHR ONIC KIDNEY DISEASE WITH STAGE 1 THROUGH STAGE 4 CHRONIC KIDNEY DISEASE, OR UNSPECIFIED CHRONIC KIDNEY DISEASE [id number] on May 23, 2024 11:43:35 AM [facility] E11.22 ICD10 TYPE 2 DIABETES MELLITUS WITH DIABETIC CHRONIC KIDNEY DISEASE [id number] on May 23, 2024 11:43:35 AM [facility] N18.31 ICD10 CHRONIC KIDNEY DISEASE, STAG E 3A [id number] on May 23, 2024 11:43:35 AM [facility] E55.9 ICD10 VITAMIN D DEFICIENCY, UNSPEC IFIED [id number] on May 23, 2024 11:43:35 AM [facility] CARE TEAM Care Right Of Way Supervisor Role TANNER MARINO Primary Attending JOSÉ GTZ Primary Care TANNER MARINO Referring TANNER MARINO 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 Role on Team Status Start Date End Date Update d By ULISSES KUMAR MD PCP normal May 21, 2024 5:00:00 AM [facility] May 21, 2024 6:42:00 PM [place] [id number] on May 21, 2024 6:43:41 PM [place] JAMILA Singh MD PHY Referring normal May 21, 2024 5:00:00 AM UT May 21, 2024 6:42:00 PM UT [id number] on May 21, 2024 6:43:41 PM [facility] JAMILA Singh MD PHY Attending normal May 21, 2024 5:00:00 AM UT May 21, 2024 6:42:00 PM UT [id number] on May 21, 2024 6:43:41 PM [facility] JAMILA Singh MD PHY Admitting normal May 21, 2024 5:00:00 AM UTC May 21, 2024 6:42:00 PM UT [id number] on May 21, 2024 6:43:41 PM [facility]
[2024-07-24 17:21] LABS: Creatinine,Urine Random 71 mg/dL (Not Estab.); Microalbumin < 6.000 mg/L (0-16.7)
== END 2024-07-24 23:59 | disposition home or self-care (01) ==
LOC: LAB.DROPOF 16:38
PROVIDERS: PCP Family Medicine; Visit Provider Family Medicine
DX: E11.9 Type 2 diabetes mellitus without complications (principal)
CPT/HCPCS: 82043; 82570